=== PATIENT | female | born 1995 | race Caucasian/White ===

== ENCOUNTER → 2018-08-16 | Outpatient (REF) | payer OTHER | LOC: M LAB REF 17:25 | PROVIDERS: ATTEND Advanced Practice Midwife | DX: Z12.4 Encounter for screening for malignant neoplasm of cervix (principal); N87.0 Mild cervical dysplasia ==

== ENCOUNTER 2018-12-07 12:06 | Emergency (ER) | payer OTHER ==
[~2018-12-07] VITALS: Ht 157.5 cm; Wt 40.9 kg
[~2018-12-07 12:06] MED LIST: AMOX500T PO; CIPR-249 PO; IBUP1TAB7 OR; IBUP600T42 PO; NORC1TAB7 PO; OXYC1TAB23 PO; PENI250T57 PO; PERCOCET PO; PRENTAB9 PO; PYRI1TAB5 PO; SUBO12MI SL; VITATAB9 PO
[2018-12-07] MEDS ORDERED: METOCLOPRAMIDE 10 MG TAB PO ONE (12:45)
[2018-12-07 13:01] LABS: HEMATOCRIT 34.7 % (36.0-47.0); HEMOGLOBIN 11.7 g/dl (12.0-15.5); MEAN CORPUSCULAR HEMOGLOBIN 29.3 pg (27.0-33.0); MEAN CORPUSCULAR HGB CONC 33.7 g/dl (32.0-36.5); PLATELET COUNT, AUTOMATED 367 10^3/uL (150-450); RED BLOOD COUNT 3.99 10^6/uL (4.00-5.40); WHITE BLOOD COUNT 7.5 10^3/uL (4.0-10.0)
[2018-12-07] MEDS ORDERED: metroNIDAZOLE (FLAGYL) 500 MG TAB PO ONE (13:45)
[2018-12-07 14:34] VITALS: BP 108/55
[2018-12-07] MEDS ORDERED: FLAG500T PO (14:35)
--- NOTE | 2018-12-07 14:39 | REP ---
EMERGENCY FIRST TRIMESTER OBSTETRIC SONOGRAPHY: HISTORY: Abdominal cramping. FINDINGS: Transabdominal and transvaginal scanning are performed. A living single intrauterine gestation is seen. Paxton-rump length of the embryonic pole is 12 mm. This corresponds with a gestational age estimate of 7 weeks 3 days. heart rate is documented at 153 beats per minute. There is a fairly large subchorionic hemorrhage associated with the gestation along its inferior aspect. This measures 3.3 x 1.6 x 2.1 cm. No extrauterine abnormalities observed. No gross anomaly. IMPRESSION: Viable single intrauterine gestation 7 weeks 3 days by crown-rump length. MARANDA by sonography July 23, 2019. There is a 3.3 x 1.6 x 2.1 cm subchorionic hemorrhage. Electronically Signed by Db Lott MD 12/07/2018 03:15 P
[2018-12-08] MEDS ORDERED: ONDA4TAB6 PO (01:06)
== END 2018-12-07 14:43 | disposition home or self-care (01) ==
LOC: M ED 12:06
DX: O21.9 Vomiting of pregnancy, unspecified (principal); O23.591 Infection of other part of genital tract in pregnancy, first trimester; O36.8911 Maternal care for other specified fetal problems, first trimester, fetus 1; Z3A.01 Less than 8 weeks gestation of pregnancy; O99.331 Smoking (tobacco) complicating pregnancy, first trimester; F17.210 Nicotine dependence, cigarettes, uncomplicated; Z79.899 Other long term (current) drug therapy

== ENCOUNTER 2018-12-07 22:16 | Emergency (ER) | payer OTHER ==
[~2018-12-07] VITALS: Ht 157.5 cm; Wt 90.0 kg
[~2018-12-07 22:16] MED LIST changes: +FLAG500T PO
[2018-12-08] MEDS ORDERED: ONDA4TAB6 PO (01:06)
[2018-12-08] MEDS ORDERED: ONDANSETRON 4 MG ORAL DISINTEGRATING TAB (Q0162 PER 1MG) PO ONE (01:15)
[2018-12-08 01:20] VITALS: BP 97/53
== END 2018-12-08 01:22 | disposition home or self-care (01) ==
LOC: M ED 22:16
DX: O21.9 Vomiting of pregnancy, unspecified (principal); O99.321 Drug use complicating pregnancy, first trimester; O99.331 Smoking (tobacco) complicating pregnancy, first trimester; F17.210 Nicotine dependence, cigarettes, uncomplicated; Z3A.01 Less than 8 weeks gestation of pregnancy; Z79.899 Other long term (current) drug therapy; Z79.2 Long term (current) use of antibiotics

== ENCOUNTER 2019-04-08 14:41 | Emergency (ER) | payer OTHER ==
[~2019-04-08] VITALS: Ht 157.5 cm; Wt 41.2 kg
[~2019-04-08 14:41] MED LIST changes: +ONDA4TAB6 PO
[2019-04-08 14:42] VITALS: BP 115/80
[2019-04-08] MEDS ORDERED: AMPICILLIN SOD/SULBACTAM SOD 3 GM in D5W MINI-BAG PLUS 100 ML IV ONE (18:30)
[2019-04-08] MEDS ORDERED: NS 500 ML IV ONE (18:30)
[2019-04-08] MEDS ORDERED: KETOROLAC 30 MG/ML VIAL (J1885) IV ONE (18:30)
[2019-04-08] MEDS: AUGMENTIN 875 MG TAB PO ONE ×2 (19:20→19:30)
[2019-04-08] MEDS ORDERED: AUGM875T28 PO (19:25)
== END 2019-04-08 19:23 | disposition left against medical advice (07) ==
LOC: M ED 14:41
DX: K04.7 Periapical abscess without sinus (principal); K02.9 Dental caries, unspecified; F17.200 Nicotine dependence, unspecified, uncomplicated; Z53.21 Procedure and treatment not carried out due to patient leaving prior to being seen by health care provider

== ENCOUNTER → 2019-06-30 | Outpatient (REF) | payer OTHER ==
[~2019-06-30] MED LIST changes: +AUGM875T28 PO
[2019-06-30 21:24] LABS: APPEARANCE, URINE CLOUDY (CLEAR); BACTERIA, URINE AUTO 1+ (NEGATIVE); BILIRUBIN, URINE AUTO NEGATIVE (NEGATIVE); BLOOD, URINE BLOOD 1+ (NEGATIVE); COLOR, URINE YELLOW (YELLOW); GLUCOSE, URINE (UA) AUTO NEGATIVE (NEGATIVE); KETONE, URINE AUTO NEGATIVE (NEGATIVE); LEUKOCYTE ESTERASE, URINE AUTO 2+ (NEGATIVE); NITRITE, URINE AUTO NEGATIVE (NEGATIVE); PROTEIN, URINE AUTO NEGATIVE (NEGATIVE); RBC, URINE AUTO 7 /HPF (0-3); SPECIFIC GRAVITY URINE AUTO 1.018 (1.002-1.035); SQUAMOUS EPITHELIAL CELL UR AU 0 /HPF (0-6); TRANSITIONAL EPITHELIAL AUTO <1 /HPF; WBC, URINE AUTO TNTC /HPF (0-3)
== END ==
LOC: M LAB REF 11:59
PROVIDERS: ATTEND Physician Assistant
DX: R30.0 Dysuria (principal)